=== PATIENT | male | born 1990 | race Hispanic/Latino ===

== ENCOUNTER 2023-05-12 09:32 | Emergency (ER) | payer SELFPAY ==
--- NOTE | 2023-05-12 10:55 | ED.EYEPROB ---
HPI - Eye Problem General Chief complaint: Eye Problems Stated complaint: right eye swelling/pain Time Seen by Provider: 05/12/23 10:40 Source: patient Mode of arrival: ambulatory Limitations: no limitations History of Present Illness HPI Narrative: Jamila is a 32-year-old male patient presenting to the ER today with complaints of right eye discomfort and having some yellow drainage coming from the eye. He denies any known injury or any foreign body any eye. States he does not have any visual changes. Denies any fever, chills, body aches. Denies any URI symptoms. Related Data Allergies Allergy/AdvReac Type Severity Reaction Status Date / Time No Known Allergies Allergy Verified 05/12/23 11:06 Review of Systems Review of Systems: Pertinent positives per HPI. Patient denies any fever, chills, rash, headache, visual changes, dizziness, cough, shortness of breath, chest pain, palpitations, nausea, vomiting, diarrhea, constipation, abdominal pain, or any urinary issues. PMFSH Comments At the time of my signature, I reviewed and agree with the nursing past medical, surgical, social, and family history. There is no relevant family history pertinent to the patient complaint. Exam Narrative: General: Well-developed, well nourished, in no apparent distress Head: Normocephalic, atraumatic Eyes: Pupils equally round and reactive to light bilaterally, EOM intact, right sclera and conjunctive injected with yellow mucopurulent discharge, left eye lids swelling- patient states this is normal for him due to old injury Ears: TMs intact and clear, ear canals clear, no drainage, grossly hearing normal. Nose: Nares patent, no discharge, no inflammation, no sinus tenderness. Mouth: Oral pharynx without lesions or masses, good dentition, MMM. Neck: Supple, trachea midline, no enlargement of anterior or posterior cervical nodes, no thyroid masses or goiter palpable. Cardio: Regular rate and rhythm, s1 and s2 normal, no murmur appreciated. Resp: Clear to auscultation bilaterally, no rhonchi, rales, wheezing or rubs Course Course Emergency Course: Portions of this record may have been created with voice recognition software. Vital Signs Vital signs: Vital Signs Temperature 36.3 C L 05/12/23 11:01 Pulse Rate 79 05/12/23 11:01 Respiratory Rate 18 05/12/23 11:01 Blood Pressure 141/89 H 05/12/23 11:01 Pulse Oximetry 98 05/12/23 11:01 Oxygen Delivery Room Air 05/12/23 11:01 Temperature 36.3 C L 05/12/23 11:01 Pulse Rate 79 05/12/23 11:01 Respiratory Rate 18 05/12/23 11:01 Blood Pressure 141/89 H 05/12/23 11:01 Pulse Oximetry 98 05/12/23 11:01 Oxygen Delivery Room Air 05/12/23 11:01 Vital signs reviewed MDM - Eye Problem MDM Narrative Medical decision making narrative: At the time of visit patient is resting comfortably on the exam table. Patient appears to be nontoxic. Plan: I suspect patient has right conjunctivitis. Prescription for tobramycin eyedrops was sent to the pharmacy. Supportive measures were discussed with the patient and they voiced understanding discharge instructions and agrees to treatment plan. Recommend follow-up with a sliver lap machine tender in 3-5 days if symptoms are not improving. Return precautions reviewed Differential Diagnosis Differential diagnosis: Likely corneal abrasion, conjunctivitis, acute iritis, hyphema, periorbital cellulitis, subconjunctival hemorrhage, glaucoma, corneal ulcer and ruptured globe Discharge Plan Discharge Clinical Impression: Bacterial conjunctivitis Patient Disposition: Home, Self-Care Condition: Stable Instructions: Antibiotic Form, Conjunctivitis (ED) Additional Instructions: La conjuntivitis se considera contagiosa shaquille 24 horas mientras se laurel el antibi?jeffrey. Practique buenas t?cnicas de lavado de marilin. Evite tocarse los ojos Instilar gotas para los ojos seg?n lo prescrito: tobramicina Puede usa
[2023-05-12 11:01] VITALS: BP 141/89; PULSE 79; RESP 18; TEMP 36.3; O2SAT 98
== END 2023-05-12 11:19 | disposition home or self-care (01) ==
LOC: ANHED 11:03
PROVIDERS: Emergency Provider Nurse Practitioner Family
DX: H10.89 Other conjunctivitis (principal)
CPT/HCPCS: 99283